=== PATIENT | female | born 1960 | race Caucasian/White ===

== ENCOUNTER 2019-12-23 10:20 | Emergency (ER) | payer SELFPAY ==
[2019-12-23 10:34] VITALS: BP 131/89; PULSE 116; RESP 16; TEMP 37.9; O2SAT 96; BMI 24.7
--- NOTE | 2019-12-23 12:23 | XRR_ITS ---
PROCEDURE INFORMATION: Exam: XR Chest, 1 View Exam date and time: 12/23/2019 12:42 PM Age: 59 years old Clinical indication: Cough and fever x 1 week TECHNIQUE: Imaging protocol: XR of the chest Views: 1 view. COMPARISON: CR Chest 2 views* [id number] 10/31/2014 9:40 PM FINDINGS: Lungs: No focal peripheral lung consolidation, air bronchogram formation, or silhouette sign. Pleural space: No pleural effusion or pneumothorax. Heart/Mediastinum: The cardiac silhouette is not enlarged. The mediastinal contours are normal. Bones/joints: No acute osseous abnormality. Soft tissues: Prior bilateral breast implants. Other findings: There is a left epicardial fat pad. XR/XR chest 1V portable [id number] IMPRESSION: No pneumonia.
[2019-12-23 12:24] LABS: Basophils % 0.3 %; Eosinophils # 0.1 10^3/uL (0.0-0.8); Eosinophils % 0.7 %; Hematocrit 42.6 % (37.0-47.0); Hemoglobin 13.8 g/dL (11.5-15.3); Lymphocytes % 13.2 %; Mean Corpuscular HGB Conc 32.4 g/dL (30.0-36.0); Mean Corpuscular Hemoglobin 28.1 pg (28.0-34.0); Mean Corpuscular Volume 86.8 fL (81-99); Monocytes # 0.4 10^3/uL (0.2-0.9); Monocytes % 5.6 %; Neutrophils # 5.9 10^3/uL (1.8-7.7); Neutrophils % 79.9 %; Nucleated Red Blood Cells % 0 %; Platelet Count 344 10^3/cmm (130-400); Red Blood Count 4.91 10^6/uL (4.1-5.3); Red Cell Distribution Width 12.1 % (12.1-15.1); White Blood Count 7.4 10^3/uL (4.0-10.0)
--- NOTE | 2019-12-23 12:24 | ED_ITS ---
HPI - Nausea/Vomiting/Diarrhea General: Chief complaint: Nausea/Vomiting/Diarrhea Stated complaint: N/V/D, CONGESTION Time Seen by Provider: 12/23/19 12:11 History of Present Illness: HPI Narrative: Patient reports cough, congestionPatient has had illness for about 1 week., And fever. Patient states he awakened this morning with some diarrhea. Patient appears mildly unwell. Patient appears in no pain. Patient denies any chronic medical problems. Review of Systems General: Reports: 10 or more systems reviewed and unremarkable except in HPI and below Const: Reports: fever and body aches ENMT: Reports: throat pain Resp: Reports: non-productive cough GI: Reports: diarrhea PFSH ED PFSH: Social History Smoking and tobacco status: never smoked Physical Exam Const: COMMON NORMALS: no apparent distress and oriented x3 GENERAL APPEARANCE: cooperative HENMT: COMMON NORMALS: normocephalic, external ears normal, EAC's normal and external nose normal HEAD & SCALP: normal to inspection and normocephalic FACE & SINUS: normal facial exam NOSE: external nose normal GENERAL EAR: hearing not grossly impaired EXTERNAL EAR: Yes external ears normal EXTERNAL AUDITORY CANAL: EAC's normal TYMPANIC MEMBRANE: TM normal on the right and TM abnormal TM laterality: right Details: dull MOUTH: oral and palatal mucosa normal THROAT: posterior oropharynx abnormal erythema Eye: COMMON NORMALS: PERRL and EOMs intact bilaterally PUPIL: Yes PERRL Neck/C-Spine: COMMON NORMALS: full ROM and no lymphadenopathy Lymph: LYMPHATIC: no lymphedema noted Chest: COMMONS NORMALS: inspection of chest normal and palpation of chest normal Resp: COMMON NORMALS: normal respiratory effort AUSCULTATION: bronchovesicular breath sounds Cardio: COMMON NORMALS: regular rate and regular rhythm RATE: regular rate RHYTHM: regular rhythm GI: COMMON NORMALS: normal to inspection, nondistended, normoactive bowel sounds and non-tender : COMMON NORMALS: Yes no CVA tenderness BLADDER/KIDNEY EXAM: Yes no CVA tenderness Back/Pelvis: COMMON NORMALS: no CVA tenderness and thoracic and lumbar spine normal to inspection Extremity: COMMON NORMALS: normal to inspection GENERAL: No edema Neuro: COMMON NORMALS: oriented x3, moves all extremities and no focal motor deficits Psych: COMMON NORMALS: mental status grossly normal and cooperative Skin: COMMON NORMALS: no rashes or lesions noted GENERAL SKIN EXAM: no rashes or lesions noted Course Vital Signs: Vital signs: Vital Signs Temperature 100.2 F H 12/23/19 10:34 Pulse Rate 115 H 12/23/19 14:37 Respiratory Rate 18 12/23/19 14:37 Blood Pressure 120/88 12/23/19 14:37 Pulse Oximetry 99 12/23/19 14:37 MDM - Nausea/Vomiting/Diarrhea MDM Narrative: Medical decision making narrative: Patient comes in with nausea and vomiting and flulike symptoms for 1 week. Patient reports cough and congestion started about 2 days ago. Patient appears mildly unwell. Exam notes some mild wheezing in the lung turner. Vital signs are noted to have a mild temperature of 100.2 and a heart rate of 115 with the remainder of vital signs normal. Differential diagnosis includes pneumonia, gastroenteritis, dehydration, viral syndrome, influenza. Flu test was negative. Chest x-ray was without signs of pneumonia. Laboratory values were normal except for some elevation in liver enzymes. Ultrasound of the right upper quadrant noted no significant abnormalities. Reviewed exam with patient recommended treatment for influenza. Believe the liver enzymes elevated are reactive due to the flu. Encourage plenty of fluids and follow-up with primary care. Patient reports understanding and agreed to plan. Lab Data: Labs: Lab Results 12/23/19 12/23/19 12/23/19 Range/Units 12:10 12:10 12:35 WBC 7.4 (4.0-10.0) 10^3/ uL RBC 4.91 (4.1-5.3) 10^6/u L Hgb 13.8 (11.5-15.3) g/dL Hct 42.6 (37.0-47.0) % MCV 86.8 (81-99) fL MCH 28.1 (28.0-34.0) pg MCHC 32.4 (30.0-36.0) g/dL RDW 12.1 (12.1-15.1) % Plt Count 344 (130-400) 10^3/c mm MPV 9.0 (7.4-10.4) fL Neut % (Auto) 79.9 % Lymph % (Auto) 13.2 % Assumption % (Auto) 5.6 % Eos % (Auto) 0.7 % Baso % (Auto) 0.3 % Neut # (Auto) 5.9 (1.8-7.7) 10^3/u L Lymph # (Auto) 1.0 (0.8-4.8) 10^3/u L Assumption # (Auto) 0.4 (0.2-0.9) 10^3/u L Eos # (Auto) 0.1 (0.0-0.8) 10^3/u L Baso # (Auto) 0.0 (0.0-0.1) 10^3/u L Nucleated RBC % (a uto) 0 % Nucleated RBCs # 0.0 /100WBC Sodium 137 (136-145) mmol/L Potassium 3.9 (3.5-5.1) mmol/L Chloride 99 (98-107) mmol/L Carbon Dioxide 27 (22-29) mmol/L Anion Gap 14.9 (5-19) BUN 12 (6-20) mg/dL Creatinine 0.5 (0.5-0.9) mg/dL GFR Calculation 126.7 (90-130) mL/min Glucose 115 (65-115) mg/dL Lactic Acid (0.5-2.2) mmol/L Calcium 9.6 (8.5-10.5) mg/dL Total Bilirubin 0.6 (0.15-1.2) mg/dL AST 48 H (0-32) U/L ALT 44 H (0-33) U/L Alkaline Phosphata se 146 H (35-105) IU/L Total Protein 8.1 (6.6-8.7) g/dL Albumin 4.1 (3.5-5.2) g/dL Globulin 4.0 (1.3-4.6) g/dL Lipase 29 (13-60) U/L Urine Color (Yellow) Urine Appearance (CLEAR) Urine pH (5-7) Ur Specific Gravit y (1.005-1.030) Urine Protein (Negative) Urine Glucose (UA) (Normal) Urine Ketones (Negative) Urine Blood (Negative) Urine Nitrate (Negative) Urine Bilirubin (NEGATIVE) Urine Urobilinogen (Negative) mg/dL Ur Leukocyte Gregoria ase (Negative) Urine RBC (0-2) /hpf Urine WBC (0-5) /hpf Ur Squamous Epith Cells (0-5) Urine Bacteria (NONE) Urine Mucus Influenza Type A A g Negative (Negative) POC Influenza B Ag Negative (Negative) 12/23/19 12/23/19 Range/Units 12:36 12:43 WBC (4.0-10.0) 10^3/ uL RBC (4.1-5.3) 10^6/u L Hgb (11.5-15.3) g/dL Hct (37.0-47.0) % MCV (81-99) fL MCH (28.0-34.0) pg MCHC (30.0-36.0) g/dL RDW (12.1-15.1) % Plt Count (130-400) 10^3/c mm MPV (7.4-10.4) fL Neut % (Auto) % Lymph % (Auto) % Assumption % (Auto) % Eos % (Auto) % Baso % (Auto) % Neut # (Auto) (1.8-7.7) 10^3/u L Lymph # (Auto) (0.8-4.8) 10^3/u L Assumption # (Auto) (0.2-0.9) 10^3/u L Eos # (Auto) (0.0-0.8) 10^3/u L Baso # (Auto) (0.0-0.1) 10^3/u L Nucleated RBC % (a uto) % Nucleated RBCs # /100WBC Sodium (136-145) mmol/L Potassium (3.5-5.1) mmol/L Chloride (98-107) mmol/L Carbon Dioxide (22-29) mmol/L Anion Gap (5-19) BUN (6-20) mg/dL Creatinine (0.5-0.9) mg/dL GFR Calculation (90-130) mL/min Glucose (65-115) mg/dL Lactic Acid 0.8 (0.5-2.2) mmol/L Calcium (8.5-10.5) mg/dL Total Bilirubin (0.15-1.2) mg/dL AST (0-32) U/L ALT (0-33) U/L Alkaline Phosphata se (35-105) IU/L Total Protein (6.6-8.7) g/dL Albumin (3.5-5.2) g/dL Globulin (1.3-4.6) g/dL Lipase (13-60) U/L Urine Color Yellow (Yellow) Urine Appearance Sl hazy (CLEAR) Urine pH 5 (5-7) Ur Specific Gravit y 1.020 (1.005-1.030) Urine Protein Neg (Negative) Urine Glucose (UA) Norm (Normal) Urine Ketones Negative (Negative) Urine Blood Neg (Negative) Urine Nitrate Negative (Negative) Urine Bilirubin Neg (NEGATIVE) Urine Urobilinogen Norm (Negative) mg/dL Ur Leukocyte Gregoria ase 1+ H (Negative) Urine RBC None (0-2) /hpf Urine WBC 5-10 H (0-5) /hpf Ur Squamous Epith Cells 0-4 H (0-5) Urine Bacteria Trace (NONE) Urine Mucus 3+ Influenza Type A A g (Negative) POC Influenza B Ag (Negative) Discharge Plan Discharge Patient Disposition: Home, Self-Care Clinical Impression: Influenza Condition: Stable Prescriptions: New ondansetron HCl 4 mg tablet 4 mg PO Q8H PRN (Reason: nausea and vomiting) Qty: 7 RF: 0 oseltamivir 75 mg capsule 75 mg PO BID 5 Days Qty: 10 RF: 0 No Action Stomach Med See Rx Instructions .ROUTE .COMPLEX RF: 0 Vitamin C 1 tab PO EVERY OTHER DAY RF: 0 28 mg iron- 800 mcg Tablet 1 tab PO DAILY RF: 0 Discharge Orders: Discharge Order (Routine); Ordered 12/23/19 Ordered By: Steve Roland Discharge Diet: Usual diet Discharge Activity: Increase activity as tolerated Patient Instructions: Influenza (ED) Activity Restrictions/Additional Instructions: Drink plenty of fluids Acetaminophen and ibuprofen for pain Follow-up with primary care in one week Return to ER for worsening shortness of breath or new concerns Discharge Date/Time: 12/23/19 14:38 Coding Level of Care Code ED [employer] Instructor for Kristalg Fwd Exam Comprehensive
[2019-12-23 12:41] LABS: Alanine Aminotransferase 44 U/L (0-33); Albumin Level 4.1 g/dL (3.5-5.2); Alkaline Phosphatase 146 IU/L (35-105); Anion Gap 14.9 (5-19); Aspartate Amino Transferase 48 U/L (0-32); Blood Urea Nitrogen 12 mg/dL (6-20); Calcium 9.6 mg/dL (8.5-10.5); Carbon Dioxide 27 mmol/L (22-29); Chloride 99 mmol/L (98-107); Glomerular Filtration Rate 126.7 mL/min (90-130); Glucose 115 mg/dL (65-115); Lipase 29 U/L (13-60); Potassium 3.9 mmol/L (3.5-5.1); Sodium 137 mmol/L (136-145); Total Bilirubin 0.6 mg/dL (0.15-1.2); Total Protein 8.1 g/dL (6.6-8.7)
[2019-12-23 12:56] LABS: Add Urine Microscopic? YES; Bilirubin Urine Neg (NEGATIVE); Blood Urine Neg (Negative); Glucose Urine UA Norm (Normal); Ketones Urine Negative (Negative); Leukocyte Esterase Urine 1+ (Negative); Nitrate Urine Negative (Negative); Protein Urine Neg (Negative); Urine Appearance SL Hazy (CLEAR); Urine Color Yellow (Yellow); Urobilinogen Urine Norm (Negative); pH Urine 5 (5-7)
[2019-12-23 13:00] LABS: Lactic Sepsis W/Reflex 0.8 mmol/L (0.5-2.2)
[2019-12-23 13:03] LABS: Bacteria Urine TRACE; Mucus Urine 3+; Squamous Epithelial Cell Urine 0-4 (0-5)
[2019-12-23 13:04] LABS: Add Urine Culture? No
--- NOTE | 2019-12-23 13:04 | US_ITS ---
WS: [id number] ULTRASOUND ABDOMEN LIMITED CLINICAL INFORMATION: elevated LFT's COMPARISON: None. FINDINGS: Liver Size: Normal. Craniocaudal length: 10.9 cm. Echogenicity: Normal. Surface nodularity: None. Mass (size and location): None. Bile ducts Intrahepatic ducts: Normal. Common bile duct diameter: 4.2 mm. Gallbladder Normal. Gallstones: None. Gallbladder sludge: None. Gallbladder wall thickening: None. Pericholecystic fluid: None. Sonographic Alvarez sign: Absent. Pancreas Normal as visualized. Right kidney: Normal. Hydronephrosis: None. Size: 9.8 cm x 5.3 cm x 4.2 cm. Abdominal aorta and IVC Visualized portions are normal. Ascites: None. US/US abdomen limited [id number] IMPRESSION: Normal abdominal ultrasound
[2019-12-23 13:16] LABS: Influenza A by IFA Negative (Negative); Influenza B by IFA Negative (Negative)
[2019-12-23 14:37] VITALS: BP 120/88; PULSE 115; RESP 18; O2SAT 99
== END 2019-12-23 14:38 | disposition home or self-care (01) ==
PROVIDERS: Emergency Medicine; Emergency Provider Nurse Practitioner Family
DX: J11.1 Influenza due to unidentified influenza virus with other respiratory manifestations (principal)
CPT/HCPCS: 36415; 71045; 76705; 80053; 81001; 83605; 83690; 85025; 87804; 99282; 99283; A9270

== ENCOUNTER → 2020-07-10 18:07 | Outpatient (BNVA) | payer SELFPAY | PROVIDERS: Visit Provider Nurse Practitioner Family | DX: S59.901A Unspecified injury of right elbow, initial encounter (principal); W19.XXXA Unspecified fall, initial encounter | CPT/HCPCS: 73080 ==

== ENCOUNTER 2021-11-02 19:54 | Emergency (ER) | payer SELFPAY ==
--- NOTE | 2021-11-02 19:57 | XRR_ITS ---
PROCEDURE INFORMATION: Exam: XR Left Ribs with PA Chest Exam date and time: 11/02/2021 7:57 PM Age: 60 years old Clinical indication: Injury or trauma; Other: Closing van door; Rib area, left side; Sprain or strain TECHNIQUE: Imaging protocol: XR Left ribs with PA chest. Views: 3 views Total images: 3 COMPARISON: CR XR chest 1V portable [id number] 12/23/2019 12:34 PM FINDINGS: Lungs: No visible active interstitial or alveolar airspace disease. Pleural spaces: Unremarkable. No pleural effusion. No pneumothorax. Heart/Mediastinum: Cardiac structures and configuration within normal limits. Bones/joints: No visible rib fracture. Soft tissues: Left breast implant. XR/XR ribs LT mn 3V w CXR1V [id number] IMPRESSION: Nonacute.
[2021-11-02 20:08] VITALS: BP 137/79; PULSE 110; RESP 18; TEMP 36.6; O2SAT 99; BMI 23.8
--- NOTE | 2021-11-02 20:15 | ED_ITS ---
HPI - General Adult General: Chief complaint: General Medical Stated complaint: Injury Left Side ribs Time Seen by Provider: 11/02/21 20:12 Source: patient Mode of arrival: ambulatory Limitations: no limitations History of Present Illness: HPI narrative: 60-year-old female states that she had leaned into the car door shot she states she landed really hard and hit her left chest wall states he been having pain since then the left chest she is also concerned she is got implants and was concerned started concerned that she may have popped one. She denies any worsening improving factors. States pain currently is a 1 out of 10 Associated symptoms: Reports chest pain; Deny dyspnea, headache(s), nausea, rash or vomiting Review of Systems Const: Denies: fever(s), chills, body aches or change in appetite Eyes: Denies: blurry vision or eye discomfort ENMT: Denies: throat pain or dental pain Card: Reports: chest pain Resp: Denies: dyspnea GI: Denies: abdominal pain, nausea, vomiting or diarrhea : Denies: dysuria Musc: Denies: neck pain or back pain Skin/Breast: Denies: rash Neuro: Denies: headache(s) Psych: Denies: depression Anival/Lymph: Denies: easy bruising All/Imm: Denies: urticaria PFSH ED PFSH: Surgical History (Updated 11/02/21 @ 20:17 by Jeremiah Post MD) S/P breast augmentation Social History Smoking and tobacco status: never smoked Physical Exam Const: COMMON NORMALS: no acute distress, patient oriented x3 and healthy appearing HENMT: COMMON NORMALS: normocephalic and atraumatic HEAD & SCALP: norm ocephalic and atraumatic Eye: COMMON NORMALS: Equal, round and reactive pupils present and EOMs intact bilaterally PUPIL: Yes Equal, round and reactive pupils present Neck/C-Spine: COMMON NORMALS: full ROM and supple Chest: COMMONS NORMALS: normal inspection of the chest and normal palpation of the breasts (No abnormalities noticed in her implant) BREAST/AXILLA PALPATIO N: Yes normal palpation of the breasts (No abnormalities noticed in her implant) OTHER: chest wall tenderness Resp: COMMON NORMALS: normal respiratory effort, No retractions, No use of accessory muscles and clear to auscultation bilaterally AUSCULTATION: clear to auscultation bilaterally Cardio: COMMON NORMALS: regular rate, regular rhythm and No murmurs present (Cardio) RATE: regular rate RHYTHM: regular rhythm GI: COMMON NORMALS: Normal to inspection, nondistended, normoactive bowel sounds present, Soft to palpation, non-tender and no masses PALPATION: Yes Soft to palpation Extremity: COMMON NORMALS: normal to inspection and full ROM Neuro: COMMON NORMALS: patient oriented x3, moves all extremities and no focal motor deficits Psych: COMMON NORMALS: mental status grossly normal, Normal thought process present and cooperative THOUGHT PROCESS: Normal thought process present Skin: COMMON NORMALS: no rashes or lesions noted and no wounds GENERAL SKIN EXAM: no rashes or lesions noted Course Vital Signs: Vital signs: Vital Signs Temperature 97.9 F 11/02/21 20:08 Pulse Rate 110 H 11/02/21 20:08 Respiratory Rate 18 11/02/21 20:08 Blood Pressure 137/79 11/02/21 20:08 Pulse Oximetry 99 11/02/21 20:08 MDM - General Adult MDM Narrative: Medical decision making narrative: Patient presents here with chest wall pain likely contusion no signs of rupture of her implant x-ray shows no signs of rib fracture she is point tender on her left lateral chest wall placed on Naprosyn she is to follow-up PCP and return if worsening. Imaging Data^: CXR: Attestation: I personally reviewed and interpreted this imaging study as follows: My impression: No acute abnormality Discharge Plan Discharge Patient Disposition: Home Clinical Impression: Chest wall contusion Qualifiers: Encounter type: initial encounter Laterality: left Qualified Code(s): S20.212A - Contusion of left front wall of thorax, initial encounter Condition: Stable Prescriptions: New Naprosyn 500 mg tablet 500 mg PO BID PRN (Reason: pain) Qty: 20 RF: 0 No Action Stomach Med See Rx Instructions .ROUTE .COMPLEX RF: 0 Discharge Orders: Discharge ED (Routine); Ordered 11/02/21 Ordered By: Jeremiah Post Discharge Diet: Advance as tolerated Discharge Activity: Resume usual activity Patient Instructions: Chest Wall Pain (ED) Coding Level of Care Code ED Home Health Clinical Supervisor for Chg Fwd Exam Comprehensive
[2021-11-02 20:36] VITALS: PULSE 89; RESP 16; O2SAT 98
== END 2021-11-02 20:38 | disposition home or self-care (01) ==
PROVIDERS: Emergency Provider Emergency Medicine
DX: S20.212A Contusion of left front wall of thorax, initial encounter (principal); W22.8XXA Striking against or struck by other objects, initial encounter; Z98.82 Breast implant status
CPT/HCPCS: 71101; 99282

== ENCOUNTER 2023-10-10 19:45 | Emergency (ER) | payer SELFPAY ==
--- NOTE | 2023-10-10 19:52 | ECG_ITS ---
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 Measurements Intervals [place] Rate: 111 P: 26 HI: 139 QRS: 5 QRSD: 82 T: 27 QT: 336 QTc: 457 Interpretive Statements SINUS TACHYCARDIA LOW QRS VOLTAGE IN PRECORDIAL LEADS [QRS DEFLECTION < 1.0 mV IN CHEST LEADS] POSSIBLE ANTERIOR MYOCARDIAL INFARCTION , PROBABLY OLD [30 ms Q WAVE IN V3/V4, OR R < 0.2 mV IN V4] ABNORMAL RHYTHM ECG No previous ECG available for comparison Electronically Signed On 10-11-2023 19:36:46 AMBULATORY CARE by Rosi Holt M.D. [email or web address]
--- NOTE | 2023-10-10 19:55 | XRR_ITS ---
PROCEDURE INFORMATION: Exam: XR Chest Exam date and time: 10/10/2023 8:15 PM Age: 62 years old Clinical indication: Chest pressure; Prior surgery; Surgery date: 6+ months; Surgery type: Breast aug. Patient HX: C/O chest pain TECHNIQUE: Imaging protocol: Radiologic exam of the chest. Views: 1 view. COMPARISON: CR XR ribs LT mn 3V w CXR1V [id number] 11/02/2021 8:27 PM FINDINGS: Lungs: Unremarkable. No consolidation. Pleural spaces: Unremarkable. No pleural effusion. No pneumothorax. Heart/Mediastinum: Unremarkable. No cardiomegaly. Bones/joints: Unremarkable. XR/XR chest 1V portable [id number] IMPRESSION: No acute findings.
[2023-10-10 19:56] VITALS: BMI 20.8
--- NOTE | 2023-10-10 19:56 | ED_ITS ---
HPI - Chest Pain 2 General: Chief Complaint: Chest Pain Stated Complaint: chest pain, L arm pain Time Seen by Provider: 10/10/23 19:55 History of Present Illness: 62-year-old female presents to the emerg ency department stating that she started having left arm sharp shooting pain that went to her left breast area. She stated that she was lying in bed started feeling very hot and then took her sweater off. She states that she started having a 4 out of 10 sharp stabbing pain to her left chest. She states she did not feel dizzy or lightheaded. She states that she did not feel short of breath or diaphoretic at that time. She states that she did take a 324 mg aspirin and also put some cayenne pepper on her tongue as she was told that may help anyone that might be concerned they are having a heart attack. She denies nausea or vomiting she states that she is generally healthy and has no cardiac history. Review of Systems 2 General: Reports: 10 or more systems reviewed and unremarkable except in HPI and below Card: Reports: chest pain PFS ED 2 PFSH: Surgical History (Updated 11/02/21 @ 20:17 by Jeremiah Post MD) S/P breast augmentation Social History Smoking and tobacco/nicotine status: never used tobacco/nicotine Physical Exam 2 Narrative: EXAM NARRATIVE: Constitutional: the patient appears well nourished and with normal development. Vital signs reviewed as documented. HENMT: Normocephalic, atraumatic. Extermal ears with normal appearance without drainage. Nose without drainage, normal appearance. Mucus membranes moist. Neck is supple, No jugular venous distension, trachea is midline, no appreciable carotid bruits. No lymphadenopathy. No meningeal signs. Flexion, extension and lateral rotation is without pain. Eyes: Pupils are equal, round, reactive to light and accommodation. No scleral icterus. Extra-ocular movement are intact. Thorax is symmetrical and with equal rise and fall with respirations. Resp: Lungs are clear to auscultation. No wheezes, rales, crackles or ronchi at present. Cardio: Sinus tachycardia noted. Positive S1, S2. No appreciable murmurs, rubs or gallops. GI: Abdominal exam reveals normal bowel sounds to all quadrants. No organomegaly. No obvious palpable masses noted. No hepatomegally appreciated. Soft, nontender to palpation. Extremity: Extremities are non-edematous and both femoral and pedal pulses are 2+ and equal bilaterally. Moves all extremities well, sensation in all extremities. Neuro: Alert and oriented x4, person, place, time and situation. Cranial nerves II through XII are grossly intact, there is no focal neurological deficits that I can appreciate at present. Motor strength in the upper and lower extremities are equal and bilateral 5/5. Psych: Cooperative, calm, normal thought process, appropriate judgment. Skin: No lesions, rashes. No gross abnormalities noted. Back: Symmetrical, no obvious deformity, No CVA tenderness Course 2 Vital Signs: Vital signs: Vital Signs Pulse Rate 96 10/10/23 21:30 Respiratory Rate 17 10/10/23 21:30 Blood Pressure 131/84 10/10/23 21:30 Pulse Oximetry 97 10/10/23 21:30 Oxygen Delivery Me thod Room Air 10/10/23 21:30 MDM - Chest Pain Medical Decision Making Physical exam completed and documented, I will obtain serial cardiac enzymes, serial twelve-lead EKGs, chest x-ray, CBC, CMP, urinalysis, B-type natriuretic peptide, PT/PTT/INR, and a chest x-ray. I we will provide nitroglycerin administration. I will review any pervious and pertinent medical records for assist in obtaining beneficial medical information to improved the care and treatment of the patient. Medical Records I reviewed the patient's medical records. Lab Data I reviewed the patient's lab results. 10/10/23 20:06 10/10/23 20:06 Radiology Impressions Chest X-Ray 10/10/23 19:55 IMPRESSION: No acute findings. Laboratory Results WBC 7.59 10^3/uL (3.29-11.43) 10/10/23 20:06 RBC 4.70 10^6/uL (3.85-5.65) 10/10/23 20:06 Hgb 13.20 g/dL (11.27-16.99) 10/10/23 20:06 Hct 40.8 % (36-47) 10/10/23 20:06 MCV 86.8 fl (85-98) 10/10/23 20:06 MCH 28.1 pg (27-33) 10/10/23 20:06 MCHC 32.4 g/dL (30-55) 10/10/23 20:06 RDW 12.4 % (12.1-15.1) 10/10/23 20:06 Plt Count 375 10^3/cmm (157-399) 10/10/23 20:06 MPV 9.2 fL (7.4-10.4) 10/10/23 20:06 Neut % (Auto) 39.2 % 10/10/23 20:06 Lymph % (Auto) 51.9 % 10/10/23 20:06 [place] % (Auto) 6.5 % 10/10/23 20:06 Eos % (Auto) 1.7 % 10/10/23 20:06 Baso % (Auto) 0.4 % 10/10/23 20:06 Neut # (Auto) 2.98 10^3/uL (1.8-7.7) 10/10/23 20:06 Lymph # (Auto) 3.9 10^3/uL (0.8-4.8) 10/10/23 20:06 [place] # (Auto) 0.5 10^3/uL (0.2-0.9) 10/10/23 20:06 Eos # (Auto) 0.1 10^3/uL (0.0-0.8) 10/10/23 20:06 Baso # (Auto) 0.0 10^3/uL (0.0-0.1) 10/10/23 20:06 Nucleated RBC % (auto) 0 % 10/10/23 20:06 Nucleated RBCs # 0.0 /100WBC 10/10/23 20:06 PT 12.60 SECONDS (12.1-14.9) 10/10/23 20:06 INR 0.92 (0.8-1.2) 10/10/23 20:06 APTT 26.5 SECONDS (23.9-36.7) 10/10/23 20:06 Sodium 142 mmol/L (136-145) 10/10/23 20:06 Potassium 3.1 mmol/L (3.5-5.1) L 10/10/23 20:06 Chloride 102 mmol/L (98-107) 10/10/23 20:06 Carbon Dioxide 27 mmol/L (22-29) 10/10/23 20:06 Anion Gap 16.1 (5-19) 10/10/23 20:06 BUN 12 mg/dL (8-23) 10/10/23 20:06 Creatinine 0.6 mg/dL (0.5-0.9) 10/10/23 20:06 GFR Calculation 101.6 mL/min (90-130) 10/10/23 20:06 Glucose 139 mg/dL (65-115) H 10/10/23 20:06 Calculated Osmolality 296 mOsm/kg (285-295) H 10/10/23 20:06 Calcium 9.7 mg/dL (8.5-10.5) 10/10/23 20:06 Total Bilirubin 0.2 mg/dL (0.15-1.2) 10/10/23 20:06 AST 22 U/L (0-32) 10/10/23 20:06 ALT 28 U/L (0-33) 10/10/23 20:06 Alkaline Phosphatase 112 U/L (35-105) H 10/10/23 20:06 Troponin T Baseline < 6 ng/L (0-10) 10/10/23 20:06 NT-Pro-B Natriuret Pep 43 pg/mL (0-125) 10/10/23 20:06 Total Protein 7.7 g/dL (6.6-8.7) 10/10/23 20:06 Albumin 4.6 g/dL (3.5-5.2) 10/10/23 20:06 Globulin 3.1 g/dL (1.3-4.6) 10/10/23 20:06 Urine Color Colorless (Yellow) 10/10/23 20:40 Urine Appearance Clear (CLEAR) 10/10/23 20:40 Urine pH 7 (5-7) 10/10/23 20:40 Ur Specific [place] 1.010 (1.005-1.030) 10/10/23 20:40 Urine Protein Neg (Negative) 10/10/23 20:40 Urine Glucose (UA) Norm (Normal) 10/10/23 20:40 Urine Ketones Negative (Negative) 10/10/23 20:40 Urine Blood Neg (Negative) 10/10/23 20:40 Urine Nitrate Negative (Negative) 10/10/23 20:40 Urine Bilirubin Neg (Negative) 10/10/23 20:40 Urine Urobilinogen Norm mg/dL (Negative) 10/10/23 20:40 Ur Leukocyte Esterase Negative (Negative) 10/10/23 20:40 All radiology interpretation(s) finalized by discharge EKG Data EKG 1: Interpretation: Twelve-lead EKG obtained at 1951 and reviewed at 1951 shows sinus tachycardia with a ventricular rate of 111 bpm. ND interval 139, QRS duration 82 QT 336 QTc [address] elevation or depression at present to indicate acute ischemia or infarction. Discharge Plan Discharge Patient Disposition: Home Clinical Impression: Atypical chest pain, Acute hypokalemia Condition: Stable Prescriptions: No Action Naprosyn 500 mg tablet 500 mg PO BID PRN (Reason: pain) Qty: 20 0RF Stomach Med See Rx Instructions .ROUTE .COMPLEX Rx Instructions: pt unsure of name of otc stomach med she is taking-pt states she takes one tab once a day prn Discharge Orders: Discharge ED (Routine); Ordered 10/10/23 Ordered By: Deng Wright Discharge Diet: Advance as tolerated Discharge Activity: Resume usual activity Patient Instructions: Opioid Safety, Pain Management Activity Restrictions/Additional Instructions: Activity Restrictions/Additional Instructions: Thank you for choosing [facility] for your healthcare needs today. Please realize that you were seen in the Emergency Department and that we are providing you with an emergency medical screening exam and this may not be a complete and all inclusive of all the testing and or medical work-up that you may need to determine your ailment or severity of your illness. It is very important that you follow-up as instructed with your Primary care provider or Specialist for additional evaluation and to discuss your medical treatment plan. You may return to the Emergency Department should you have concerns or if your condition changes or worsens in any way. Coding Level of Care Code ED Fusing Machine Operator for [address]
[2023-10-10 19:58] VITALS: BP 138/93; PULSE 109; RESP 17; O2SAT 100
[2023-10-10 20:04] VITALS: BP 138/93; PULSE 106
[2023-10-10] MEDS: nitroglycerin 1 gm/inch oint Pkt 1 INCH TOPICAL (20:04)
[2023-10-10 20:12] LABS: Basophils % 0.4 %; Eosinophils # 0.1 10^3/uL (0.0-0.8); Eosinophils % 1.7 %; Hematocrit 40.8 % (36-47); Lymphocytes # 3.9 10^3/uL (0.8-4.8); Lymphocytes % 51.9 %; Mean Corpuscular HGB Conc 32.4 g/dL (30-55); Mean Corpuscular Hemoglobin 28.1 pg (27-33); Mean Corpuscular Volume 86.8 fl (85-98); Mean Platelet Volume 9.2 fL (7.4-10.4); Monocytes # 0.5 10^3/uL (0.2-0.9); Monocytes % 6.5 %; Neutrophils # 2.98 10^3/uL (1.8-7.7); Neutrophils % 39.2 %; Nucleated Red Blood Cells % 0 %; Platelet Count 375 10^3/cmm (157-399); Red Cell Distribution Width 12.4 % (12.1-15.1); White Blood Count 7.59 10^3/uL (3.29-11.43)
[2023-10-10 20:28] VITALS: BP 147/89; PULSE 124; RESP 18; O2SAT 100
[2023-10-10 20:53] LABS: Add Urine Microscopic? NO; Charge for UA Resulting for Rev
[2023-10-10 21:06] LABS: INR 0.92 (0.8-1.2)
[2023-10-10 21:06] LABS: Bilirubin Urine Neg (Negative); Blood Urine Neg (Negative); Glucose Urine UA Norm (Normal); Ketones Urine Negative (Negative); Leukocyte Esterase Urine Negative (Negative); Nitrate Urine Negative (Negative); Protein Urine Neg (Negative); Urine Appearance Clear (CLEAR); Urine Color Colorless (Yellow); Urobilinogen Urine Norm (Negative); pH Urine 7 (5-7)
[2023-10-10 21:07] LABS: Partial Thromboplastin Time 26.5 SECONDS (23.9-36.7)
[2023-10-10 21:18] LABS: Troponin(5th) Baseline < 6 ng/L (0-10)
[2023-10-10 21:27] LABS: Alanine Aminotransferase 28 U/L (0-33); Albumin Level 4.6 g/dL (3.5-5.2); Alkaline Phosphatase 112 U/L (35-105); Anion Gap 16.1 (5-19); Aspartate Amino Transferase 22 U/L (0-32); Blood Urea Nitrogen 12 mg/dL (8-23); Calcium 9.7 mg/dL (8.5-10.5); Carbon Dioxide 27 mmol/L (22-29); Chloride 102 mmol/L (98-107); Globulin 3.1 g/dL (1.3-4.6); Glomerular Filtration Rate 101.6 mL/min (90-130); Glucose 139 mg/dL (65-115); NT Pro B Type Natriuretic Pept 43 pg/mL (0-125); Osmolality Calculated 296 mOsm/kg (285-295); Potassium 3.1 mmol/L (3.5-5.1); Sodium 142 mmol/L (136-145); Total Bilirubin 0.2 mg/dL (0.15-1.2); Total Protein 7.7 g/dL (6.6-8.7)
[2023-10-10 21:30] VITALS: BP 131/84; PULSE 96; RESP 17; O2SAT 97
--- NOTE | 2023-10-10 21:55 | ECG_ITS ---
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 Measurements Intervals [place] Rate: 88 P: 28 [place]: 133 QRS: 0 QRSD: 77 T: 33 QT: 349 QTc: 424 Interpretive Statements SINUS RHYTHM LOW QRS VOLTAGE IN PRECORDIAL LEADS [QRS DEFLECTION < 1.0 mV IN CHEST LEADS] POSSIBLE ANTERIOR MYOCARDIAL INFARCTION , OF INDETERMINATE AGE [30 ms Q WAVE IN V3/V4, OR R < 0.2 mV IN V4] Compared to ECG 10/10/2023 19:52:16 Sinus tachycardia no longer present Myocardial infarct finding still present Electronically Signed On 10-11-2023 19:47:26 FOOD COUNSELOR by Rosi Holt M.D. [id number]
[2023-10-10] MEDS: potassium chloride ER 20 mEq Tablet 40 MEQ PO (21:59)
[2023-10-10 22:04] VITALS: BP 111/85; PULSE 95; RESP 19; O2SAT 98
== END 2023-10-10 22:05 | disposition home or self-care (01) ==
PROVIDERS: Emergency Provider Internal Medicine
DX: R07.89 Other chest pain (principal); E87.6 Hypokalemia
CPT/HCPCS: 71045; 80053; 81003; 83880; 84484; 85025; 85610; 85730; 93005; 99285

== ENCOUNTER 2024-06-28 22:02 | Emergency (ER) | payer SELFPAY ==
[2024-06-28 22:06] VITALS: BP 157/95; PULSE 106; RESP 16; TEMP 36.8; O2SAT 99
--- NOTE | 2024-06-28 22:28 | ED_ITS ---
HPI - Nausea/Vomiting/Diarrhea General: Chief complaint: Nausea/Vomiting/Diarrhea Stated complaint: General Medical Time Seen by Provider: 06/28/24 22:17 History of Present Illness: Patient arrives to the ER with worried that she got exposed to diatomaceous earth and has not been getting sick from it. Place it last night all over carpets in the bedroom to kill the fleas she was okay last night and today but this afternoon she started feeling funny nauseous thought she might pass out. She thinks this may be related that to make sure it especially after she read the potential side effects. Patient's O2 sats 99% on room air. Patient does appear anxious but in no acute distress and nontoxic. Related Data Home Medications Medication Instructions Recorded Confirmed Stomach Med See Rx Instructions .Route .COMPLEX 12/23/19 07/10/20 Previous Rx's Medication Instructions Recorded naproxen 500 mg tablet (Naprosyn) 500 mg PO BID PRN pain #20 tabs 11/02/21 Allergies Allergy/AdvReac Type Severity Reaction Status Date / Time codeine Allergy Unknown Unknown Verified 06/28/24 22:12 Review of Systems General: Reports: 10 or more systems reviewed and unremarkable except in HPI and below PFSH ED PFSH: Surgical History S/P breast augmentation Social History Smoking and tobacco/nicotine status: never used tobacco/nicotine Physical Exam Const: COMMON NORMALS: no acute distress, average body habitus, patient oriented x3, no limitations, healthy appearing, alert and well nourished HENMT: COMMON NORMALS: normocephalic, atraumatic, hearing grossly normal bilaterally, external ears normal, Normal external nose present and moist oral mucous membranes HEAD & SCALP: normocephalic and atraumatic NOSE: Normal external nose present EXTERNAL EAR: Yes external ears normal Neck/C-Spine: COMMON NORMALS: no JVD Chest: COMMONS NORMALS: normal inspection of the chest and normal palpation of entire chest wall Resp: COMMON NORMALS: normal respiratory effort, No retractions, No use of accessory muscles and clear to auscultation bilaterally AUSCULTATION: clear to auscultation bilaterally Cardio: COMMON NORMALS: no JVD, regular rate, regular rhythm, S1 normal heart sound present, S2 normal heart sound present, No gallops present (Cardio), No clicks present (Cardio), No murmurs present (Cardio) and No rub (Cardio) RATE: regular rate RHYTHM: regular rhythm HEART SOUNDS: S1 normal heart sound present and S2 normal heart sound present GI: COMMON NORMALS: Normal to inspection, nondistended, normoactive bowel sounds present, Soft to palpation, non-tender, No hepatosplenomegaly present and no masses PALPATION: Yes Soft to palpation and Yes No hepatosplenomegaly present Neuro: COMMON NORMALS: patient oriented x3 SENSORIUM/ORIENTATION: Yes alert Course Vital Signs: Vital signs: Vital Signs Temperature 98.3 F 06/28/24 22:06 Pulse Rate 106 H 06/28/24 22:06 Respiratory Rate 16 06/28/24 22:06 Blood Pressure 157/95 06/28/24 22:06 Pulse Oximetry 99 06/28/24 22:06 Oxygen Delivery Me thod Room Air 06/28/24 22:06 MDM - Nausea/Vomiting/Diarrhea Medical Decision Making Patient is in no acute distress nontoxic. Research was done on diatomaceous earth is more of an irritant anything. Patient's limited exposure should not cause any prolonged ramifications. It was discussed with the patient she should vacuum and up while wearing a mask limit her exposure. Patient be discharged home Medical Records I reviewed the patient's medical records. Lab Data I reviewed the patient's lab results. No radiology studies performed this visit Discharge Plan Discharge Patient Disposition: Home Clinical Impression: Nauseous, Anxiety Condition: Stable Prescriptions: No Action Naprosyn 500 mg tablet 500 mg PO BID PRN (Reason: pain) Qty: 20 0RF Stomach Med See Rx Instructions .ROUTE .COMPLEX Rx Instructions: pt unsure of name of otc stomach med she is taking-pt states she takes one tab once a day prn Discharge Orders: Discharge ED (Routine); Ordered 06/28/24 Ordered By: Armani Anton Patient Instructions: Anxiety (ED) Activity Restrictions/Additional Instructions: Please limit your future exposure to the diatomaceous of this. Please wear a mask when vacuuming or sweeping it up. Please follow-up with your family practice physician in the next 7 days for further evaluation testing as needed. Coding Level of Care Code ED Tooth Cutter Clutch for [address]
[2024-06-28 22:42] VITALS: BP 140/75; PULSE 98; RESP 16; O2SAT 95
[2024-06-28 22:58] VITALS: BP 129/80; PULSE 94; RESP 18; O2SAT 94
== END 2024-06-28 23:02 | disposition home or self-care (01) ==
PROVIDERS: Emergency Provider Emergency Medicine
DX: R11.0 Nausea (principal); F41.9 Anxiety disorder, unspecified
CPT/HCPCS: 99281

== ENCOUNTER 2024-07-22 20:24 | Emergency (ER) | payer SELFPAY ==
[2024-07-22 20:25] VITALS: BP 169/86; PULSE 108; RESP 18; TEMP 36.7; O2SAT 97; BMI 17.9
--- NOTE | 2024-07-22 20:32 | ECG_ITS ---
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 Measurements Intervals [place] Rate: 105 P: 26 [place]: 132 QRS: 21 QRSD: 79 T: 47 QT: 336 QTc: 445 Interpretive Statements SINUS TACHYCARDIA LOW QRS VOLTAGE IN PRECORDIAL LEADS [QRS DEFLECTION < 1.0 mV IN CHEST LEADS] MINIMAL ST DEPRESSION [0.025+ mV ST DEPRESSION] Compared to ECG 10/10/2023 21:53:59 ST (T wave) deviation now present Sinus rhythm no longer present Myocardial infarct finding no longer present Electronically Signed On 07-25-2024 18:52:49 CDT by Nacho Burkett M.D. [id number]
--- NOTE | 2024-07-22 20:40 | ED_ITS ---
HPI - Dizziness 2 General: Chief Complaint: Dizziness Stated Complaint: HTN Time Seen by Provider: 07/22/24 20:26 History of Present Illness: HPI Narrative: Patient presents to the ER by EMS with complaints of dizziness and high blood pressure. Patient stated she was on lisinopril for high blood pressure she will start making her 6 and her her doctor changed her over to hydrochlorothiazide approximately 4 days ago. Tonight patient woke up with dizziness and high blood pressure. Patient stated somebody told her she was low in potassium so she went and got herself some over the counter potassium pills and has been taking them. Patient states her blood pressure diastolic was over 104 which made her anxious. EMS reports her systolics were in the 160s. Patient does appear to be anxious and nervous. Related Data Home Medications Medication Instructions Recorded Confirmed potassium supplement PO 07/12/24 07/18/24 Previous Rx's Medication Instructions Recorded hydrochlorothiazide 12.5 mg tablet 12.5 mg PO QAM #30 tabs 07/18/24 Allergies Allergy/AdvReac Type Severity Reaction Status Date / Time codeine Allergy Unknown Unknown Verified 07/18/24 15:50 Review of Systems 2 General: Reports: 10 or more systems reviewed and unremarkable except in HPI and below PFSH ED 2 PFSH: Surgical History S/P breast augmentation Social History Smoking and tobacco/nicotine status: unknown if used tobacco/nicotine Physical Exam 2 Const: COMMON NORMALS: no acute distress, average body habitus, patient oriented x3, no limitations, healthy appearing, alert and well nourished HENMT: COMMON NORMALS: normocephalic, atraumatic, hearing grossly normal bilaterally, external ears normal, Normal external nose present and moist oral mucous membranes HEAD & SCALP: normocephalic and atraumatic NOSE: Normal external nose present EXTERNAL EAR: Yes external ears normal Neck/C-Spine: COMMON NORMALS: no JVD Chest: COMMONS NORMALS: normal inspection of the chest and normal palpation of entire chest wall Resp: COMMON NORMALS: normal respiratory effort, No retractions, No use of accessory muscles and clear to auscultation bilaterally AUSCULTATION: clear to auscultation bilaterally Cardio: COMMON NORMALS: no JVD, regular rate, regular rhythm, S1 normal heart sound present, S2 normal heart sound present, No gallops present (Cardio), No clicks present (Cardio), No murmurs present (Cardio) and No rub (Cardio) R ATE: regular rate RHYTHM: regular rhythm HEART SOUNDS: S1 normal heart sound present and S2 normal heart sound present GI: COMMON NORMALS: Normal to inspection, nondistended, normoactive bowel sounds present, Soft to palpation, non-tender, No hepatosplenomegaly present and no masses PALPATION: Yes Soft to palpation and Yes No hepatosplenomegaly present Neuro: COMMON NORMALS: patient oriented x3 SENSORIUM/ORIENTATION: Yes alert Course 2 Vital Signs: Vital signs: Vital Signs Temperature 98.1 F 07/22/24 20:25 Pulse Rate 108 H 07/22/24 20:25 Respiratory Rate 18 07/22/24 20:25 Blood Pressure 169/86 07/22/24 20:25 Pulse Oximetry 97 07/22/24 20:25 Oxygen Delivery Me thod Room Air 07/22/24 20:25 MDM - Dizziness Medical Decision Making Patient's lab work and EKG were unremarkable, patient was given 0.2 mg clonidine p.o. in the ER to reduce her blood pressure. Patient will be instructed to take 2 of her HCTZ 12.5 mg tablets for total of 25 mg. Medical Records I reviewed the patient's medical records. Lab Data I reviewed the patient's lab results. 07/22/24 21:29 07/22/24 21: Laboratory Results WBC 7.29 10^3/uL (3.29-11.43) 07/22/24 21: RBC 4.70 10^6/uL (3.85-5.65) 07/22/24 21: Hgb 13.20 g/dL (11.27-16.99) 07/22/24 21: Hct 40.2 % (36-47) 07/22/24 21: MCV 85.5 fl (85-98) 07/22/24 21: MCH 28.1 pg (27-33) 07/22/24 21: MCHC 32.8 g/dL (30-55) 07/22/24 21: RDW 12.4 % (12.1-15.1) 07/22/24 21: Plt Count 338 10^3/cmm (157-399) 07/22/24 21: MPV 9.1 fL (7.4-10.4) 07/22/24 21: Neut % (Auto) 65.3 % 07/22/24 21: Lymph % (Auto) 22.8 % 07/22/24 21: [place] % (Auto) 10.4 % 07/22/24 21: Eos % (Auto) 1.0 % 07/22/24 21: Baso % (Auto) 0.4 % 07/22/24 21: Neut # (Auto) 4.76 10^3/uL (1.8-7.7) 07/22/24: Lymph # (Auto) 1.7 10^3/uL (0.8-4.8) 07/22/24: [place] # (Auto) 0.8 10^3/uL (0.2-0.9) 07/22/24 21: Eos # (Auto) 0.1 10^3/uL (0.0-0.8) 07/22/24 21: Baso # (Auto) 0.0 10^3/uL (0.0-0.1) 07/22/24: Nucleated RBC % (auto) 0 % 07/22/24: Nucleated RBCs # 0.0 /100WBC 07/22/24 21: Sodium 139 mmol/L (136-145) 07/22/24 21: Potassium 3.5 mmol/L (3.5-5.1) 07/22/24 21: Chloride 100 mmol/L (98-107) 07/22/24 21: Carbon Dioxide 30 mmol/L (22-29) H 07/22/24: Anion Gap 12.5 (5-19) 07/22/24 21: BUN 16 mg/dL (8-23) 07/22/24 21: Creatinine 0.5 mg/dL (0.5-0.9) 07/22/24 21: GFR Calculation 125.0 mL/min (90-130) 07/22/24: Glucose 111 mg/dL (65-115) 07/22/24 21:29 Calculated Osmolality 290 mOsm/kg (285-295) 07/22/24 21:29 Calcium 9.3 mg/dL (8.5-10.5) 07/22/24 21:29 Total Bilirubin 0.2 mg/dL (0.15-1.2) 07/22/24 21:29 AST 30 U/L (0-32) 07/22/24 21:29 ALT 22 U/L (0-33) 07/22/24 21:29 Alkaline Phosphatase 111 U/L (35-105) H 07/22/24 21:29 Total Protein 7.3 g/dL (6.6-8.7) 07/22/24 21:29 Albumin 4.4 g/dL (3.5-5.2) 07/22/24 21: Globulin 2.9 g/dL (1.3-4.6) 07/22/24 21:29 All radiology interpretation(s) finalized by discharge Discharge Plan Discharge Patient Disposition: Home Clinical Impression: Hypertension Qualifiers: Hypertension type: unspecified Qualified Code(s): I10 - Essential (primary) hypertension Condition: Stable Prescriptions: No Action potassium supplement PO hydrochlorothiazide 12.5 mg tablet 12.5 mg PO QAM Qty: 30 0RF Discharge Orders: Discharge ED (Routine); Ordered 07/22/24 Ordered By: Armani Anton Patient Instructions: Hypertension (ED) Activity Restrictions/Additional Instructions: Please take 2 tablets of your HCTZ 12.5 mg for a total of 25 mg daily. Please keep a blood pressure log of at least 2 times per day. Please take this log to your family practice appointment within the next 7 days for further evaluation and treatment. Coding Level of Care Code ED College Dean for [address]
[2024-07-22] MEDS: cloNIDine 0.1 mg Tablet PO (20:47)
[2024-07-22 21:34] LABS: Basophils % 0.4 %; Eosinophils # 0.1 10^3/uL (0.0-0.8); Hematocrit 40.2 % (36-47); Lymphocytes # 1.7 10^3/uL (0.8-4.8); Lymphocytes % 22.8 %; Mean Corpuscular HGB Conc 32.8 g/dL (30-55); Mean Corpuscular Hemoglobin 28.1 pg (27-33); Mean Corpuscular Volume 85.5 fl (85-98); Mean Platelet Volume 9.1 fL (7.4-10.4); Monocytes # 0.8 10^3/uL (0.2-0.9); Monocytes % 10.4 %; Neutrophils # 4.76 10^3/uL (1.8-7.7); Neutrophils % 65.3 %; Nucleated Red Blood Cells % 0 %; Platelet Count 338 10^3/cmm (157-399); Red Cell Distribution Width 12.4 % (12.1-15.1); White Blood Count 7.29 10^3/uL (3.29-11.43)
[2024-07-22 21:51] LABS: Alanine Aminotransferase 22 U/L (0-33); Albumin Level 4.4 g/dL (3.5-5.2); Alkaline Phosphatase 111 U/L (35-105); Anion Gap 12.5 (5-19); Aspartate Amino Transferase 30 U/L (0-32); Blood Urea Nitrogen 16 mg/dL (8-23); Calcium 9.3 mg/dL (8.5-10.5); Carbon Dioxide 30 mmol/L (22-29); Chloride 100 mmol/L (98-107); Creatinine Clr Calc Pharmacy 101.0799; Globulin 2.9 g/dL (1.3-4.6); Glucose 111 mg/dL (65-115); Osmolality Calculated 290 mOsm/kg (285-295); Potassium 3.5 mmol/L (3.5-5.1); Sodium 139 mmol/L (136-145); Total Bilirubin 0.2 mg/dL (0.15-1.2); Total Protein 7.3 g/dL (6.6-8.7)
[2024-07-22] MEDS: hyDRALAzine 25 mg Tablet 50 MG PO (22:03)
[2024-07-22 22:24] VITALS: BP 148/98; PULSE 97; O2SAT 98
== END 2024-07-22 22:47 | disposition home or self-care (01) ==
PROVIDERS: Emergency Provider Emergency Medicine
DX: I10 Essential (primary) hypertension (principal)
CPT/HCPCS: 80053; 85025; 93005; 99284

== ENCOUNTER 2024-07-26 13:03 | Emergency (ER) | payer SELFPAY ==
[2024-07-26 13:22] VITALS: BP 141/90; PULSE 101; RESP 18; TEMP 36.7; O2SAT 99; BMI 24.7
--- NOTE | 2024-07-26 14:02 | ECG_ITS ---
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 Measurements Intervals [place] Rate: 110 P: 18 [place]: 128 QRS: 3 QRSD: 71 T: 61 QT: 318 QTc: 431 Interpretive Statements SINUS TACHYCARDIA LOW QRS VOLTAGE IN PRECORDIAL LEADS [QRS DEFLECTION < 1.0 mV IN CHEST LEADS] ANTERIOR MYOCARDIAL INFARCTION , PROBABLY OLD [40+ ms Q WAVE AND/OR ST/T ABNORMALITY IN V3/V4] POSSIBLE INFERIOR MYOCARDIAL INFARCTION , PROBABLY OLD [30 ms Q WAVE IN II/aVF] Compared to ECG 07/22/2024 20:32:07 Myocardial infarct finding now present ST (T wave) deviation no longer present Electronically Signed On 07-26-2024 16:24:07 CDT by Nacho Burkett M.D. [id number]
[2024-07-26 14:32] LABS: Basophils % 0.3 %; Eosinophils # 0.1 10^3/uL (0.0-0.8); Hematocrit 42.9 % (36-47); Lymphocytes # 1.7 10^3/uL (0.8-4.8); Lymphocytes % 23.7 %; Mean Corpuscular HGB Conc 33.1 g/dL (30-55); Mean Corpuscular Hemoglobin 28.4 pg (27-33); Mean Corpuscular Volume 85.8 fl (85-98); Mean Platelet Volume 8.9 fL (7.4-10.4); Monocytes # 0.6 10^3/uL (0.2-0.9); Monocytes % 8.8 %; Neutrophils # 4.82 10^3/uL (1.8-7.7); Neutrophils % 65.9 %; Nucleated Red Blood Cells % 0 %; Platelet Count 360 10^3/cmm (157-399); Red Cell Distribution Width 12.5 % (12.1-15.1)
[2024-07-26 14:50] LABS: Alanine Aminotransferase 23 U/L (0-33); Albumin Level 4.4 g/dL (3.5-5.2); Alkaline Phosphatase 111 U/L (35-105); Anion Gap 14.6 (5-19); Aspartate Amino Transferase 23 U/L (0-32); Blood Urea Nitrogen 13 mg/dL (8-23); Calcium 9.6 mg/dL (8.5-10.5); Carbon Dioxide 32 mmol/L (22-29); Chloride 95 mmol/L (98-107); Creatinine Clr Calc Pharmacy 66.2242; Glomerular Filtration Rate 84.8 mL/min (90-130); Glucose 132 mg/dL (65-115); Osmolality Calculated 288 mOsm/kg (285-295); Potassium 3.6 mmol/L (3.5-5.1); Sodium 138 mmol/L (136-145); Total Bilirubin 0.2 mg/dL (0.15-1.2); Total Protein 7.4 g/dL (6.6-8.7)
--- NOTE | 2024-07-26 15:15 | CTR_ITS ---
PROCEDURE INFORMATION: Exam: CT Head Without Contrast Exam date and time: 07/26/2024 3:23 PM Age: 63 years old Clinical indication: Pain; Headache not specified; Additional info: Headache dizziness elevated blood pressure TECHNIQUE: Imaging protocol: Computed tomography of the head without contrast. Radiation optimization: All CT scans at this facility use at least one of these dose optimization techniques: automated exposure control; mA and/or kV adjustment per patient size (includes targeted exams where dose is matched to clinical indication); or iterative reconstruction. COMPARISON: No relevant prior studies available. RADIATION DOSE METRICS: Total DLP (mGy-cm): 960.98 FINDINGS: Brain: Normal. No hemorrhage. Minimal periventricular white matter hypodensities, likely chronic small vessel ischemic changes. No mass effect. Cerebral ventricles: No ventriculomegaly. Paranasal sinuses: Visualized sinuses are unremarkable. No fluid levels. Mastoid air cells: Visualized mastoid air cells are well aerated. Bones: Unremarkable. No acute fracture. Soft tissues: Unremarkable. CT/CT head wo con* [id number] IMPRESSION: No acute intracranial abnormality.
--- NOTE | 2024-07-26 17:03 | ED_ITS ---
HPI - General Adult 2 General: Chief complaint: General Medical Stated complaint: numbess and tingle in head and high bp Time Seen by Provider: 07/26/24 15:05 History of Present Illness: 61-year-old female presents emergency ro om complaining of numbness and tingling in her head primarily on the left side. She has not had any other symptoms. She states increase her blood pressure medications last week she was concerned. She denies difficulty speech swallowing. She will occasionally have some blurriness in her vision resolves on her own. Associated symptoms: Deny chest pain, dyspnea or rash Related Data Home Medications Medication Instructions Recorded Confirmed potassium supplement PO 07/12/24 07/26/24 Previous Rx's Medication Instructions Recorded hydrochlorothiazide 25 mg tablet 25 mg PO QAM #30 tabs 07/26/24 Allergies Allergy/AdvReac Type Severity Reaction Status Date / Time codeine Allergy Unknown Unknown Verified 07/26/24 08:22 Review of Systems 2 Const: Denies: fever(s) or chills Card: Denies: chest pain Resp: Denies: dyspnea GI: Denies: abdominal pain : Denies: dysuria, urinary frequency or urinary urgency Musc: Denies: neck pain or back pain Skin/Breast: Denies: rash PFSH ED 2 PFSH: Surgical History S/P breast augmentation Social History Smoking and tobacco/nicotine status: never used tobacco/nicotine Physical Exam 2 Const: COMMON NORMALS: no acute distress GENERAL APPEARANCE: cooperative and comfortable ORIENTATION/CONSCIOUSNESS: Yes awake, Yes oriented to person, Yes oriented to place and Yes oriented to time HENMT: COMMON NORMALS: normocephalic, atraumatic and hearing grossly normal bilaterally HEAD & SCALP: normocephalic and atraumatic Resp: COMMON NORMALS: normal respiratory effort, No retractions, No use of accessory muscles and clear to auscultation bilaterally AUSCULTATION: clear to auscultation bilaterally Cardio: COMMON NORMALS: regular rate, regular rhythm and No murmurs present (Cardio) RATE: regular rate RHYTHM: regular rhythm GI: COMMON NORMALS: Soft to palpation and No hepatosplenomegaly present A USCULTATION: Yes normoactive bowel sounds PALPATION: Yes Soft to palpation, No Tenderness to palpation present (GI), No Guarding due to palpation present (GI) and Yes No hepatosplenomegaly present Extremity: COMMON NORMALS: normal to inspection, capillary refill normal, no clubbing, cyanosis or edema, no calf tenderness and no pedal edema Neuro: SENSORIUM/ORIENTATION: Yes oriented to person, Yes oriented to place and Yes oriented to time Skin: COMMON NORMALS: no rashes or lesions noted GENERAL SKIN EXAM: no rashes or lesions noted Course 2 Vital Signs: Vital signs: Vital Signs Temperature 98.1 F 07/26/24 13:22 Pulse Rate 101 H 07/26/24 13:22 Respiratory Rate 18 07/26/24 13:22 Blood Pressure 141/90 07/26/24 13:22 Pulse Oximetry 99 07/26/24 13:22 Oxygen Delivery Me thod Room Air 07/26/24 13:22 MDM - General Adult Medical Decision Making Neuroexam is normal. CT of the head is negative laboratory tests unremarkable. Most of her symptoms have resolved at this point. She is very anxious about her blood pressure and about other possibilities she thinks that 2 weeks ago when she put some flea medicine on her dog in her carpet at home she may have inhaled some's concern that may be part of it she had called poison control they were not particularly concerned discussed with her that given her normal exam 2 weeks out toxidrome from this is very unlikely. I think she does have a high degree of anxiety and think blood pressure plays a big role in it as well. Recommend that she continue the changes of Dr. Camacho recommended for her today and to follow-up with Dr. Camacho in the office in the next week and reevaluate blood pressure. Lab Data 07/26/24 14:24 07/26/24 14:[address] 07/26/24 15:15 IMPRESSION: No acute intracranial abnormality. Laboratory Results WBC 7.30 10^3/uL (3.29-11.43) 07/26/24 14:24 RBC 5.00 10^6/uL (3.85-5.65) 07/26/24 14:24 Hgb 14.20 g/dL (11.27-16.99) 07/26/24 14:24 Hct 42.9 % (36-47) 07/26/24 14:24 MCV 85.8 fl (85-98) 07/26/24 14:24 MCH 28.4 pg (27-33) 07/26/24 14:24 MCHC 33.1 g/dL (30-55) 07/26/24 14:24 RDW 12.5 % (12.1-15.1) 07/26/24 14:24 Plt Count 360 10^3/cmm (157-399) 07/26/24 14:24 MPV 8.9 fL (7.4-10.4) 07/26/24 14:24 Neut % (Auto) 65.9 % 07/26/24 14:24 Lymph % (Auto) 23.7 % 07/26/24 14:24 [place] % (Auto) 8.8 % 07/26/24 14:24 Eos % (Auto) 1.0 % 07/26/24 14:24 Baso % (Auto) 0.3 % 07/26/24 14: Neut # (Auto) 4.82 10^3/uL (1.8-7.7) 07/26/24 14:24 Lymph # (Auto) 1.7 10^3/uL (0.8-4.8) 07/26/24 14:24 [place] # (Auto) 0.6 10^3/uL (0.2-0.9) 07/26/24 14:24 Eos # (Auto) 0.1 10^3/uL (0.0-0.8) 07/26/24 14:24 Baso # (Auto) 0.0 10^3/uL (0.0-0.1) 07/26/24 14:24 Nucleated RBC % (auto) 0 % 07/26/24 14: Nucleated RBCs # 0.0 /100WBC 07/26/24 14:24 Sodium 138 mmol/L (136-145) 07/26/24 14:24 Potassium 3.6 mmol/L (3.5-5.1) 07/26/24 14:24 Chloride 95 mmol/L (98-107) L 07/26/24 14:24 Carbon Dioxide 32 mmol/L (22-29) H 07/26/24 14:24 Anion Gap 14.6 (5-19) 10/01/24 14:24 BUN 13 mg/dL (8-23) 07/26/24 14:24 Creatinine 0.7 mg/dL (0.5-0.9) 07/26/24 14:24 GFR Calculation 84.8 mL/min (90-130) L 07/26/24 14:24 Glucose 132 mg/dL (65-115) H 07/26/24 14:24 Calculated Osmolality 288 mOsm/kg (285-295) 07/26/24 14:24 Calcium 9.6 mg/dL (8.5-10.5) 07/26/24 14:24 Total Bilirubin 0.2 mg/dL (0.15-1.2) 07/26/24 14:24 AST 23 U/L (0-32) 07/26/24 14:24 ALT 23 U/L (0-33) 07/26/24 14:24 Alkaline Phosphatase 111 U/L (35-105) H 07/26/24 14:24 Total Protein 7.4 g/dL (6.6-8.7) 07/26/24 14:24 Albumin 4.4 g/dL (3.5-5.2) 07/26/24 14:24 Globulin 3.0 g/dL (1.3-4.6) 07/26/24 14:24 All radiology interpretation(s) finalized by discharge Discharge Plan Discharge Patient Disposition: Home Clinical Impression: Essential hypertension Condition: Stable Prescriptions: No Action potassium supplement PO hydrochlorothiazide 25 mg tablet 25 mg PO QAM Qty: 30 0RF Discharge Orders: Discharge ED (Routine); Ordered 07/26/24 Ordered By: Alex York Referrals: Leon Haywood MD [Primary Care Provider] - Discharge Diet: Usual diet Discharge Activity: Resume usual activity Patient Instructions: Opioid Safety, Pain Management Activity Restrictions/Additional Instructions: Thank you for choosing [facility] for your healthcare needs today. It is very important that you follow up as instructed or that you return to the Emergency Department should you have concerns or if your condition changes or worsens in any way. Follow-up with your primary care doctor recheck your blood pressure within the next week. CT of your head was normal. Coding Level of Care Code ED [employer] [address] NIH stroke score NIHSS Level Of Consciousness - 1a: 0 Level Of Consciousness Questions - 1b: Both Correct Level Of Consciousness Commands - 1c: Both Correct Best Gaze - 2: Normal Visual Stephen - 3: No Visual Loss Facial Palsy - 4: Normal Motor Arm Right - 5: No Drift Motor Arm Left - 5: No Drift Motor Leg Right - 6: No Drift Motor Leg Left - 6: No Drift Limb Ataxia - 7: Absent Sensory - 8: Normal Best Language - 9: No Aphasia Dysarthia - 10: Normal Extinction And Inattention - 11: 0 Score Total Score: 0
[2024-07-26 17:49] VITALS: BP 141/85; PULSE 82; RESP 19; O2SAT 97
== END 2024-07-26 17:54 | disposition home or self-care (01) ==
PROVIDERS: Emergency Provider Family Medicine; PCP Family Medicine
DX: I10 Essential (primary) hypertension (principal)
CPT/HCPCS: 36415; 70450; 80053; 85025; 93005; 99284

== ENCOUNTER → 2024-08-18 09:57 | Outpatient (BNVA) | payer MEDICAID, SELFPAY | PROVIDERS: PCP Family Medicine; Visit Provider Family Medicine | DX: R73.9 Hyperglycemia, unspecified (principal); Z12.11 Encounter for screening for malignant neoplasm of colon; H69.90 Unspecified Eustachian tube disorder, unspecified ear; I10 Essential (primary) hypertension; J30.2 Other seasonal allergic rhinitis; Z12.31 Encounter for screening mammogram for malignant neoplasm of breast; H53.8 Other visual disturbances | CPT/HCPCS: 80053; 84439; 84443 ==

== ENCOUNTER → 2024-09-08 10:45 | Outpatient (BNVA) | payer SELFPAY | PROVIDERS: PCP Family Medicine; Visit Provider Family Medicine | DX: Z12.4 Encounter for screening for malignant neoplasm of cervix; M62.89 Other specified disorders of muscle | CPT/HCPCS: 87624 ==

== ENCOUNTER 2025-04-13 17:50 | Emergency (ER) | payer BC, MEDICAID, SELFPAY ==
[2025-04-13 17:50] VITALS: BP 143/87; PULSE 100; RESP 16; TEMP 36.8; O2SAT 98
--- NOTE | 2025-04-13 19:52 | W.ED.ANIMALB ---
HPI - Animal Bite General: Chief Complaint: Animal Bite Stated Complaint: cat bite Time Seen by Provider: 04/13/25 19:39 Source: patient Mode of arrival: ambulatory History of Present Illness: 64yo female presents for evaluation following a cat bite to the right lower leg. 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 States that the cat has never been vaccinated, but can be monitored by the aunt. States her tetanus has been within the past 10 years. Denies any other injury or concern at this time. Associated symptoms: Deny chills or fever(s) Related Data Home Medications ?Medication ?Instructions ?Recorded ?Confirmed potassium supplement PO 07/12/24 03/22/25 Previous Rx's ?Medication ?Instructions ?Recorded hydrochlorothiazide 25 mg tablet 25 mg PO QAM #90 tabs 03/22/25 amoxicillin 875 mg-potassium 1 tab PO BID 7 days #14 tabs 04/13/25 clavulanate 125 mg tablet Allergies Allergy/AdvReac Type Severity Reaction Status Date / Time codeine Allergy Unknown Unknown Verified 03/22/25 11:27 Review of Systems Const: Denies: fever(s), chills or body aches Skin/Breast: Reports: other (Bite wound right lower leg) [facility] ED PFSH: Medical History Seasonal allergies Essential hypertension Surgical History S/P breast augmentation Social History Smoking and tobacco/nicotine status: never used tobacco/nicotine Alcohol intake: never Substance/Drug Use: never Physical Exam Const: COMMON NORMALS: no acute distress, patient oriented x3 and alert GENERAL APPEARANCE: cooperative ORIENTATION/CONSCIOUSNESS: Yes awake OTHER: Patient is ambulatory to vertical for recliner unassisted. She is able to give history with no difficulty and is in no acute distress. She is interactive with exam appropriately. No family is at bedside at time of exam HENMT: COMMON NORMALS: normocephalic and atraumatic HEAD & SCALP: normocephalic and atraumatic Chest: CHEST: Yes Symmetrical chest wall rise Resp: COMMON NORMALS: normal respiratory effort EFFORT & INSPECTION: Yes able to speak in complete sentences Extremity: RIGHT LOWER EXTREMITY: Yes lower leg (Scabbed wound to the right lower leg, no bleeding at this time) Neuro: COMMON NORMALS: patient oriented x3 SENSORIUM/ORIENTATION: Yes alert Psych: COMMON NORMALS: cooperative Course Vital Signs: Vital signs: Vital Signs Temperature 98.3 F 04/13/25 17:50 Pulse Rate 100 04/13/25 17:50 Respiratory Rate 16 04/13/25 17:50 Blood Pressure 143/87 04/13/25 17:50 Pulse Oximetry 98 04/13/25 17:50 Oxygen Delivery Me thod Room Air 04/13/25 17:50 MDM - Animal Bite Medical Decision Making 64yo female presents for evaluation following a cat bite to the right lower leg. 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 States that the cat has never been vaccinated, but can be monitored by the aunt. States her tetanus has been within the past 10 years. Denies any other injury or concern at this time. Patient is nontoxic in appearance. Vital signs are stable. Discussed with patient monitoring the animal for abnormal behavior. Patient states that the Can be monitored by her aunts. Tetanus up-to-date. Will proceed with Augmentin, first dose provided while in the emergency department and prescription sent to patient's pharmacy. Discussed wound care. Recommend she follow-up with primary care for wound recheck within a week. Return precautions provided. Patient states understanding and has no further questions or concerns at this time. Differential Diagnosis Likely cat bite Medical Records I reviewed the patient's medical records. No radiology studies performed this visit Discharge Plan Discharge Patient Disposition: Home Clinical Impression: Cat bite Condition: Stable Prescriptions: New amoxicillin-pot clavulanate 875-125 mg tablet 1 tab PO BID 7 Days Qty: 14 0RF No Action potassium supplement PO hydrochlorothiazide 25 mg tablet 25 mg PO QAM Qty: 90 1RF Discharge Orders: Discharge ED (Routine); Ordered 04/13/25 Ordered By: Leo Trivedi Referrals: Leon Haywood MD [Primary Care Provider, [facility]] Patient Instructions: Animal Bite (ED), Pain Management Activity Restrictions/Additional Instructions: A prescription of Augmentin has been sent to the pharmacy to help prevent infection from the cat bite to your right leg Please continue to have the cat monitored for abnormal behavior. If it does begin with abnormal behavior, we may need to begin rabies prophylaxis at that time. Follow-up with primary care within 1 week for wound recheck, sooner if needed Return to the emergency department if any further injury, rapid worsening symptoms, and as needed. Print Language: Cymraes Coding Level of Care Code ED [employer] [address]
[2025-04-13] MEDS: amoxicillin-clav 875-125 mg Tablet 1 TAB PO (21:41)
--- NOTE | 2025-04-13 21:41 | PC.NURSE ---
Pt. got home and realized she left without getting her first pill of augmentin and asked if she could send someone to the ER to get it. I have pulled the medication to leave it at the front facer.
== END 2025-04-13 20:08 | disposition home or self-care (01) ==
PROVIDERS: Emergency Provider Nurse Practitioner; PCP Family Medicine
DX: S81.851A Open bite, right lower leg, initial encounter (principal); W55.01XA Bitten by cat, initial encounter; I10 Essential (primary) hypertension
CPT/HCPCS: 99283; J9999